=== PATIENT | female | born 1970 | race Caucasian/White ===

== ENCOUNTER → 2017-06-15 | Outpatient (CLI) | payer BC ==
[~2017-06-15] MED LIST: FERR325T5; FRRG PO; NORE1TAB53; WARF1TAB PO
[2017-06-15 13:05] LABS: FERRITIN 24.2 ng/ml (8.0-388.0); THYROID STIMULATING HORMONE 2.85 uIu/ml (0.300-4.500)
== END | disposition home or self-care (01) ==
LOC: C.LABBFT 09:12
PROVIDERS: ATTEND Physician Assistant Medical
DX: E83.10 Disorder of iron metabolism, unspecified (principal)

== ENCOUNTER → 2017-09-09 | Outpatient (CLI) | payer BC ==
--- NOTE | 2017-09-10 13:55 | MAMMOGRAPHY REPORT ---
BILATERAL DIGITAL SCREENING MAMMOGRAM TOMOSYNTHESIS WITH CAD: 09/09/2017 CLINICAL HISTORY: Routine screening. Patient has no complaints. TECHNIQUE: Breast tomosynthesis in addition to standard 2D mammography was performed. Current study was also evaluated with a Computer Aided Detection (CAD) system. COMPARISON: Comparison is made to exams dated: 02/22/2014 ultrasound, 02/22/2014 mammogram, 02/15/2014 mammogram, 10/22/2009 ultrasound, and 10/22/2009 mammogram - [facility]. BREAST COMPOSITION: There are scattered areas of fibroglandular density in both breasts. FINDINGS: There is evidence of prior reduction mammoplasty. The parenchymal pattern is similar to p rior mammograms. No new suspicious mass, architectural distortion or cluster of microcalcifications is seen. IMPRESSION: ACR BI-RADS CATEGORY 1: NEGATIVE There is no mammographic evidence of malignancy. A 1 year screening mammogram is recommended. The pa tient will receive written notification of the results. Approximately 10% of breast cancers are not detected with mammography. A negative mammographic report should not delay biopsy if a clinically suggestive mass is present. Nandini Lin M.D. ay/:09/09/2017 16:06:02 Match Up Worker: Yessenia CASTANEDA(Mary Ellen)(M), [facility] letter sent: Normal 1/2 BI-RADS Code: ACR BI-RADS Category 1: Negative
== END | disposition home or self-care (01) ==
LOC: C.MAMM 09:58
PROVIDERS: ATTEND Obstetrics & Gynecology
DX: Z12.31 Encounter for screening mammogram for malignant neoplasm of breast (principal)

== ENCOUNTER 2017-12-02 05:12 | Day surgery (SDC) | payer BC, OTHER ==
[2017-11-20 08:32] VITALS: Ht 162.6 cm; Wt 65.9 kg
[~2017-12-02] VITALS: Ht 162.6 cm; Wt 65.9 kg
[~2017-12-02 05:12] MED LIST changes: -FERR325T5; -FRRG PO; +NORE1TAB PO; -NORE1TAB53; -WARF1TAB PO
[2017-12-02 05:42] VITALS: BP 110/66; PULSE 60; TEMP 36.5; O2SAT 98
[2017-12-02] MEDS ORDERED: LACTATED RINGER'S 1000ML 1,000 ML IV SCH (06:00)
[2017-12-02] MEDS ORDERED: CEFAZOLIN 2000MG IV PUSH 10 ML IV SCH (06:00)
--- NOTE | 2017-12-02 06:45 | History & Physical Bridge Note ---
H&P Re-Evaluation Bridge Note: I have examined the patient, reviewed the History & Physical and in the interval since the performance of the History & Physical I have noted the following changes of clinical significance: No changes noted
[2017-12-02] MEDS ORDERED: LIDOCAINE HCL 2% 2 ML VIAL (20MG/ML) ONE (06:48)
[2017-12-02] MEDS ORDERED: ROCURONIUM BROMIDE 10 MG/ML 5 ML VIAL IV ONE (06:48)
[2017-12-02] MEDS ORDERED: PROPOFOL IV EMULSION 10 MG/ML 20 ML VIAL IV ONE (06:48)
[2017-12-02] MEDS ORDERED: FENTANYL CITRATE INJ 50 MCG/1 ML 2 ML VIAL ONE ×2 (06:49→07:29)
[2017-12-02] MEDS ORDERED: MIDAZOLAM HCL 1 MG/ML 2ML VIAL ONE (06:49)
[2017-12-02] MEDS ORDERED: CEFAZOLIN SOD 1 GM VIAL ONE (06:51)
[2017-12-02] MEDS ORDERED: BUPIVACAINE 0.5 % 5 MG/1 ML MPF 30ML VIAL ONE (06:51)
[2017-12-02] MEDS ORDERED: DEXAMETHASONE SOD INJ 4 MG/ML VIAL ONE (07:16)
[2017-12-02] MEDS ORDERED: ONDANSETRON INJ 2 MG/ML 2 ML VIAL ONE (07:16)
[2017-12-02] MEDS ORDERED: ATROPINE SULFATE 0.1 MG/ML 5ML SYR IV PRN (07:30)
[2017-12-02] MEDS ORDERED: FENTANYL CITRATE INJ 50 MCG/1 ML 2 ML VIAL IV PRN (07:30)
[2017-12-02] MEDS ORDERED: EpHEDrine SULFATE INJ 50 MG/ML AMP IV PRN (07:30)
[2017-12-02] MEDS ORDERED: HYDROmorphone INJ 1 MG/ML SYR IV PRN (07:30)
[2017-12-02] MEDS ORDERED: ONDANSETRON INJ 2 MG/ML 2 ML VIAL IV PRN ×2 (07:30→08:15)
[2017-12-02] MEDS ORDERED: NEOSTIGMINE METHYLSULFATE 5 MG/5 ML SYR ONE (07:32)
[2017-12-02] MEDS ORDERED: KETOROLAC TROMETHAMINE 30 MG/ML VIAL ONE (07:32)
[2017-12-02] MEDS ORDERED: GLYCOPYRROLATE INJ 0.2 MG/ML VIAL ONE (07:32)
--- NOTE | 2017-12-02 08:11 | [facility] Operative Report ---
Operative Report Operative Date Dec 02, 2017. Pre-Operative Diagnosis Left inguinal hernia Post-Operative Diagnosis Left Inguinal Hernia Procedure(s) Performed Laparoscopic Left Inguinal Hernia Repair Surgeon Dr. Hay Cut Roll Machine Operator Surgeon(s) Arnold Flores PA-C Estimated Blood Loss 5 cc Findings indirect LIH placed med 3DMax mesh Specimens none per surgeon Anesthesia gen Complication(s) None Disposition Recovery Room / PACU I attest to the content of the Intraoperative Record and any orders documented therein. Any exceptions are noted below.
[2017-12-02] MEDS ORDERED: HYDR-5688 PO (08:13)
[2017-12-02] MEDS ORDERED: CEPH500C2 PO (08:13)
[2017-12-02] MEDS ORDERED: HYDROCODONE/ACETAMOPHEN 5/325MG TAB PO PRN ×2 (08:15)
--- NOTE | 2017-12-02 08:16 | Discharge Instructions ---
Discharge Instructions Date of Service Dec 02, 2017. Visit Reason for Visit: Left Inguinal Hernia Discharge Discharge Diagnosis / Problem: Lt inguinal hernia Discharge Goals Goal(s): Decrease discomfort, Improve function, Improve disease control Activity Recommendations Activity Limitations: as noted below Lifting Limitations: no more than 25 pounds Exercise/Sports Limitations: until after follow-up appointment May Resume Sexual Activity: when tolerated Shower/Bathe: tomorrow Driving or Machine Use: resume 3 days after discharge Anesthesia . Post Anesthesia Instructions: If you have had General Anesthesia or IV Sedation: * Do not drive today. * Resume driving when surgeon permits. * Do not make important decisions or sign legal documents today. * Call surgeon for: 1. Temperature elevations greater than 101 degrees F. 2. Uncontrollable pain. 3. Excessive bleeding. 4. Persistent nausea and vomiting. 5. Medication intolerance (nausea, vomiting or rash). * For nausea and vomiting use only clear liquids such as: tea, soda, bouillon until nausea subsides, then gradually increase diet as tolerated. * If you have any concerns or questions, call your surgeon's office. If physician is unavailable and it is an emergency, call 911 or go to the nearest emergency room. . Instructions / Follow-Up Instructions / Follow-Up SPECIAL CARE INSTRUCTIONS: * Cover incisions and change daily for comfort/drainage. may leave uncovered with dermabond * May use ibuprofen for pain as tolerated. * Expect some swelling and bruising. Call your doctor if: * Temperature above 101 degrees * Pain not relieved by pain medicine ordered * There is increased drainage or redness from any incision * You have any unanswered questions or concerns [phone]. FOLLOW UP VISIT: If not already scheduled, please call the office for a follow-up visit. for 2 weeks- check up- no sutures to remove OFFICE PHONE NUMBER: Dr. Hay Office Diet Recommendations Recommended Home Diet: resume previous diet Procedures Procedures Performed: Laparoscopic Left Inguinal Hernia Repair Pending Studies Studies pending at discharge: no Medical Emergencies . Who to Call and When: Medical Emergencies: If at any time you feel your situation is an emergency, please call 911 immediately. . Non-Emergent Contact Non-Emergency issues call your: Primary Care Provider, Surgeon . . "Provider Documentation" section prepared by Lalito Hay. .
--- NOTE | 2017-12-02 08:28 | OPERATIVE REPORT ---
DATE OF OPERATION: 12/02/2017 NAME OF OPERATION: Laparoscopic left inguinal hernia repair. PREOPERATIVE DIAGNOSIS: Left inguinal hernia. POSTOPERATIVE DIAGNOSIS: Same with indirect defect. STAFF SURGEON: Lalito Hay MD. DATA WAREHOUSE CONSULTANT: Terrance Flores PA-C. ANESTHESIA: General. DESCRIPTION OF PROCEDURE: The patient was brought in the operating room and placed on the operating table in supine position. Pneumatic stockings, Sapp catheter, orogastric tube were placed. Her abdomen was prepped and draped in usual fashion. Then, 0.5% plain Marcaine was used to anesthetize all incisions. Incision was made above the umbilicus, carrying dissection down, placing a Veress needle producing pneumoperitoneum. An 11 mm port was placed at the umbilicus. Then under visualization, two 5 mm ports were placed, 1 right and left lateral. On inspection, the patient did have an indirect left inguinal hernia. Dissection was carried out above and medial to the defect, taking the peritoneum down, identifying the epigastric vessels. The hernia sac was reduced and also the round ligament was mobilized and then transected. It was too large for clips and therefore the Endo-RITESH was used after placing a 12 mm port through the umbilicus. After the round ligament was transected, a medium piece of 3DMax mesh was placed into the defect. It covered the site well. It was secured superior to the inguinal ligament from medial to lateral using absorbable clips and then the peritoneum brought up over the mesh and secured using absorbable clips. Pneumoperitoneum was reduced. All ports were removed. The 12 mm defect closed using interrupted 0 Vicryl suture. Skin reapproximated using subcuticular 4-0 Monocryl and Dermabond. The patient was transferred to recovery room in stable condition. As a note, my embalmer assistant helped with prepping draping, entering the abdominal cavity, exposing the hernia and then closure of the abdomen. I attest to the content of the Intraoperative Record and any orders documented therein. Any exception s are noted below.
--- NOTE | 2017-12-02 09:04 | Anesthesiology Progress Note ---
Anesthesia Post Op Note Date & Time Dec 02, 2017 at 09:04 Vital Signs Pain Intensity: 0 Vital Signs Past 12 Hours Date Time Temp Pulse Resp B/P (MAP) Pulse Ox O2 Delivery O2 Flow Rate FiO2 12/02/17 08:57 43 13 12/02/17 08:57 43 13 98 12/02/17 08:55 117/70 12/02/17 08:52 45 11 12/02/17 08:52 45 11 97 12/02/17 08:51 105/67 12/02/17 08:47 48 13 97 12/02/17 08:47 48 13 12/02/17 08:46 107/68 12/02/17 08:43 36.0 16 107/68 (77) 96 Room Air 12/02/17 08:42 53 10 12/02/17 08:42 52 10 100 12/02/17 08:41 110/68 12/02/17 08:37 55 11 12/02/17 08:37 54 11 99 12/02/17 08:36 111/68 12/02/17 08:32 49 14 99 12/02/17 08:32 49 14 12/02/17 08:31 106/63 12/02/17 08:31 106/63 12/02/17 08:30 48 12 100 12/02/17 08:30 48 12 12/02/17 08:30 48 12 100 12/02/17 08:30 48 12 12/02/17 08:25 48 13 106/63 100 12/02/17 08:25 48 13 12/02/17 08:25 48 13 106/63 100 12/02/17 08:25 48 13 12/02/17 08:20 55 17 12/02/17 08:20 55 17 12/02/17 08:20 55 17 112/68 100 12/02/17 08:20 36.0 53 12 112/68 (77) 100 Oxymask 10 12/02/17 08:20 55 17 112/68 100 12/02/17 05:42 36.5 60 16 110/66 (81) 98 Room Air Notes Mental Status: alert / awake / arousable, participated in evaluation Pt Amnestic to Procedure: Yes Nausea / Vomiting: adequately controlled Pain: adequately controlled Airway Patency, RR, SpO2: stable & adequate BP & HR: stable & adequate Hydration State: stable & adequate Anesthetic Complications: no major complications apparent
[2017-12-02 09:10] VITALS: BP 108/61; PULSE 47; TEMP 36.4; O2SAT 98
[2017-12-02 09:44] VITALS: BP 108/66; PULSE 47; O2SAT 99
[2017-12-02 10:10] VITALS: BP 100/62; PULSE 53; TEMP 36.3; O2SAT 99
== END 2017-12-02 11:30 | disposition home or self-care (01) ==
LOC: C.ACU 05:12
PROVIDERS: ATTEND Surgery
DX: K40.90 Unilateral inguinal hernia, without obstruction or gangrene, not specified as recurrent (principal); E78.5 Hyperlipidemia, unspecified; Z82.5 Family history of asthma and other chronic lower respiratory diseases; Z82.49 Family history of ischemic heart disease and other diseases of the circulatory system; Z82.3 Family history of stroke; Z83.3 Family history of diabetes mellitus; Z79.3 Long term (current) use of hormonal contraceptives; Z96.641 Presence of right artificial hip joint

== ENCOUNTER → 2017-12-30 | Outpatient (CLI) | payer OTHER ==
[~2017-12-30] MED LIST changes: +CEPH500C2 PO; +HYDR-5688 PO
== END | disposition home or self-care (01) ==
LOC: C.PAPS 13:34
PROVIDERS: ATTEND Obstetrics & Gynecology
DX: Z12.4 Encounter for screening for malignant neoplasm of cervix (principal); Z11.51 Encounter for screening for human papillomavirus (HPV)

== ENCOUNTER → 2018-06-29 | Outpatient (CLI) | payer OTHER ==
[~2018-06-29] MED LIST changes: -CEPH500C2 PO; -HYDR-5688 PO
--- NOTE | 2018-06-29 13:22 | DIAGNOSTIC IMAGING REPORT ---
L VENOUS DOPP LOWER EXT UNILAT CLINICAL HISTORY: LEFT SIDE, PAIN AND SWELLING, CALL REPORT TECHNIQUE: Venous Doppler COMPARISON STUDY: None FINDINGS: Normal study IMPRESSION: Normal study The above report was generated using voice recognition software. It may contain grammatical, syntax or spelling errors. Electronically signed by: Dionicio Ley M.D. 06/29/2018 1:21 PM Dictated Date/Time: 06/29/2018 1:20 PM
== END | disposition home or self-care (01) ==
LOC: C.ULTRBC 12:49
PROVIDERS: ATTEND Physician Assistant Medical
DX: M79.89 Other specified soft tissue disorders (principal)